=== PATIENT | female | born 1960 | race African-American/Black ===

== ENCOUNTER 2017-09-02 11:48 | Emergency (ER) | payer BC ==
[~2017-09-02] VITALS: Ht 182.9 cm; Wt 89.5 kg
[2017-09-02 11:56] VITALS: TEMP 98
[2017-09-02 12:29] LABS: BASO % 0.4 % (0.0-2.0); EOS # 0.1 (0.0-0.7); EOS % 2.8 % (0-4.0); GRAN # 2.5 (1.4-6.5); GRAN % 49.2 % (42.2-75.2); HEMOGLOBIN 11.2 g/dl (12.5-16.0); LYMPH # 1.9 (1.2-3.4); LYMPH % 38.5 % (20.0-51.0); MEAN CELL VOLUME 87 fl (80.0-100.0); MEAN CORPUSCULAR HEMOGLOBIN 28 pg (27.0-31.0); MEAN CORPUSCULAR HGB CONC 32 g/dl (33.0-37.0); MONO # 0.4 (0.1-0.6); MONO % 8.7 % (1.7-9.3); PLATELET COUNT 306 K/mm3 (130-400); RED BLOOD COUNT 4.04 M/mm3 (4.10-5.30); REDCELL DISTRIBUTION WIDTH-CV 12.8 % (11.5-14.5)
[2017-09-02 12:32] LABS: HEMATOCRIT 35.1 % (37.0-47.0)
[2017-09-02 12:36] LABS: ALANINE AMINOTRANSFERASE 24 U/L (9-52); ALBUMIN 3.8 gm/dL (3.5-5.0); ALKALINE PHOSPHATASE 96 U/L (50-136); ANION GAP 10 mmol/L (7-16); AST,SGOT 22 U/L (15-37); BILIRUBIN,TOTAL 0.3 mg/dL (0.0-1.0); BLOOD UREA NITROGEN 14 mg/dL (7-17); CALCIUM 9.1 mg/dL (8.4-10.2); CARBON DIOXIDE 26 mmol/L (22-30); CHLORIDE 103 mmol/L (98-107); GLUCOSE 148 mg/dL (74-106); LIPASE 52 U/L (23-300); POTASSIUM 3.2 mmol/L (3.4-5.0); SODIUM 138 mmol/L (137-145); TOTAL PROTEIN 7.3 gm/dL (6.4-8.2)
[2017-09-02 13:12] LABS: TROPONIN-I < 0.012 ng/mL (0.000-0.034)
[2017-09-02] MEDS ORDERED: FLEXERIL 1010 MG/TAB PO (13:49)
[2017-09-02] MEDS ORDERED: NORCO 325 MG-51 TAB PO (13:49)
[2017-09-02 14:03] VITALS: BP 159/85; PULSE 62
== END 2017-09-02 14:00 | disposition home or self-care (01) ==
LOC: COL.ER 11:48
PROVIDERS: Emergency Medicine
DX: M79.1 Myalgia (principal); R60.9 Edema, unspecified; J45.909 Unspecified asthma, uncomplicated; F17.210 Nicotine dependence, cigarettes, uncomplicated; Z86.718 Personal history of other venous thrombosis and embolism; Z98.51 Tubal ligation status

== ENCOUNTER → 2017-09-07 | Outpatient (CLI) | payer OTHER ==
[~2017-09-07] MED LIST: FLEXERIL 1010 MG/TAB PO; NORCO 325 MG-51 TAB PO
== END ==
LOC: COL.RAD 11:39
DX: M51.36 Other intervertebral disc degeneration, lumbar region (principal); M48.061 Spinal stenosis, lumbar region without neurogenic claudication

== ENCOUNTER → 2017-11-15 | Outpatient (CLI) | payer SELFPAY | LOC: COL.VAS 14:14 | DX: M79.89 Other specified soft tissue disorders (principal); R79.1 Abnormal coagulation profile; R79.9 Abnormal finding of blood chemistry, unspecified; Z91.89 Other specified personal risk factors, not elsewhere classified; Z86.718 Personal history of other venous thrombosis and embolism ==

== ENCOUNTER → 2017-11-15 | Outpatient (CLI) | payer SELFPAY | LOC: COL.LAB 12:36 | DX: I82.409 Acute embolism and thrombosis of unspecified deep veins of unspecified lower extremity (principal) ==

== ENCOUNTER 2017-11-30 07:06 | Emergency (ER) | payer BC ==
[~2017-11-30] VITALS: Ht 154.9 cm; Wt 85.9 kg
[2017-11-30 07:18] VITALS: TEMP 98.4
[2017-11-30] MEDS ORDERED: MOTRIN 800800 MG/TAB PO (08:22)
[2017-11-30 08:34] VITALS: BP 144/86; PULSE 76
== END 2017-11-30 08:35 | disposition home or self-care (01) ==
LOC: COL.ER 07:06
DX: M25.512 Pain in left shoulder (principal); I10 Essential (primary) hypertension; F17.210 Nicotine dependence, cigarettes, uncomplicated

== ENCOUNTER 2018-03-07 08:05 | Emergency (ER) | payer BC ==
[~2018-03-07] VITALS: Ht 154.9 cm; Wt 86.4 kg
[~2018-03-07 08:05] MED LIST changes: +MOTRIN 800800 MG/TAB PO
[2018-03-07 08:09] VITALS: TEMP 99.6
[2018-03-07] MEDS ORDERED: PREDNISONE20 MG PO (08:55)
[2018-03-07] MEDS ORDERED: ELIQUIS 5MG PO (08:56)
[2018-03-07] MEDS ORDERED: HCTZ 25MG TAB25 MG PO (08:57)
[2018-03-07] MEDS ORDERED: AMOXICILLIN 8751 TAB PO (09:11)
[2018-03-07 09:21] VITALS: BP 125/85; PULSE 89
== END 2018-03-07 09:22 | disposition home or self-care (01) ==
LOC: COL.ER 08:05
DX: J01.90 Acute sinusitis, unspecified (principal); Z87.891 Personal history of nicotine dependence; Z98.51 Tubal ligation status; J45.909 Unspecified asthma, uncomplicated

== ENCOUNTER 2018-08-25 07:16 | Emergency (ER) | payer BC ==
[~2018-08-25] VITALS: Ht 154.9 cm; Wt 84.1 kg
[~2018-08-25 07:16] MED LIST changes: +AMOXICILLIN 8751 TAB PO; +ELIQUIS 5MG PO; +HCTZ 25MG TAB25 MG PO; +PREDNISONE20 MG PO
[2018-08-25 07:21] VITALS: TEMP 98.6
[2018-08-25 08:12] LABS: BASO % 0.4 % (0.0-2.0); EOS # 0.2 (0.0-0.7); EOS % 1.6 % (0-4.0); GRAN # 6.4 (1.4-6.5); GRAN % 58.4 % (42.2-75.2); HEMOGLOBIN 11.4 g/dl (12.5-16.0); LYMPH % 27.2 % (20.0-51.0); MEAN CELL VOLUME 92 fl (80.0-100.0); MEAN CORPUSCULAR HEMOGLOBIN 28 pg (27.0-31.0); MEAN CORPUSCULAR HGB CONC 31 g/dl (33.0-37.0); MONO # 1.3 (0.1-0.6); MONO % 11.7 % (1.7-9.3); PLATELET COUNT 298 K/mm3 (130-400); RED BLOOD COUNT 4.02 M/mm3 (4.10-5.30); REDCELL DISTRIBUTION WIDTH-CV 13.7 % (11.5-14.5)
[2018-08-25 08:22] LABS: ALBUMIN 3.6 gm/dL (3.5-5.0); BILIRUBIN,TOTAL 0.2 mg/dL (0.0-1.0); CALCIUM 9.1 mg/dL (8.4-10.2); CREATININE, serum 0.77 (0.52-1.25); TOTAL PROTEIN 6.8 gm/dL (6.4-8.2)
[2018-08-25 09:24] LABS: INR 0.9 (0.8-3.0); PROTHROMBIN TIME 10.5 SECONDS (9.7-12.8)
[2018-08-25] MEDS ORDERED: FLEXERIL 1010 MG/TAB PO (09:39)
[2018-08-25 11:01] VITALS: BP 148/98; PULSE 64
== END 2018-08-25 11:06 | disposition home or self-care (01) ==
LOC: COL.ER 07:16
PROVIDERS: Emergency Medicine; Physician Assistant
DX: S39.011A Strain of muscle, fascia and tendon of abdomen, initial encounter (principal); J45.909 Unspecified asthma, uncomplicated; I10 Essential (primary) hypertension; Z79.01 Long term (current) use of anticoagulants; Z86.718 Personal history of other venous thrombosis and embolism; F17.210 Nicotine dependence, cigarettes, uncomplicated; Z98.51 Tubal ligation status; X50.0XXA Overexertion from strenuous movement or load, initial encounter
CPT/HCPCS: J1170; J2270; J2405; J2550; J7030; Q9967

== ENCOUNTER 2019-01-02 17:46 | Emergency (ER) | payer BC ==
[~2019-01-02] VITALS: Ht 154.9 cm; Wt 81.8 kg
[2019-01-02 17:50] VITALS: BP 158/80; TEMP 97.7
[2019-01-02 18:26] LABS: STREP SCREEN NEGATIVE
[2019-01-02] MEDS ORDERED: CLEOCIN HCL300 MG PO (20:18)
[2019-01-02 20:36] VITALS: PULSE 86
== END 2019-01-02 20:36 | disposition home or self-care (01) ==
LOC: COL.ER 17:46
PROVIDERS: Emergency Medicine
DX: J03.90 Acute tonsillitis, unspecified (principal); F17.210 Nicotine dependence, cigarettes, uncomplicated
CPT/HCPCS: J1100; J7030

== ENCOUNTER 2020-07-05 12:33 | Emergency (ER) | payer BC ==
[~2020-07-05] VITALS: Ht 154.9 cm; Wt 84.1 kg
[~2020-07-05 12:33] MED LIST changes: +CLEOCIN HCL300 MG PO
[2020-07-05 13:07] VITALS: TEMP 98.1
[2020-07-05] MEDS ORDERED: FLEXERIL 1010 MG/TAB PO (14:18)
[2020-07-05] MEDS ORDERED: ALDACTONE 25MG25 M1 PO (14:22)
[2020-07-05] MEDS ORDERED: NORCO 325 MG-51 TAB PO (14:35)
[2020-07-05 15:00] LABS: CALCIUM 9.4 mg/dL (8.4-10.2); CREATININE, serum 0.71 (0.52-1.25); POTASSIUM 3.5 mmol/L (3.4-5.0)
[2020-07-05 15:45] VITALS: BP 171/104; PULSE 78
== END 2020-07-05 15:50 | disposition home or self-care (01) ==
LOC: COL.ER 12:33
PROVIDERS: Physician Assistant
DX: I10 Essential (primary) hypertension (principal); R22.42 Localized swelling, mass and lump, left lower limb; F17.210 Nicotine dependence, cigarettes, uncomplicated; Z86.718 Personal history of other venous thrombosis and embolism; Z79.01 Long term (current) use of anticoagulants

== ENCOUNTER 2021-02-15 07:24 | Emergency (ER) | payer OTHER ==
[~2021-02-15] VITALS: Ht 154.9 cm; Wt 81.8 kg
[~2021-02-15 07:24] MED LIST changes: +ALDACTONE 25MG25 M1 PO
[2021-02-15 07:36] VITALS: TEMP 97.9
[2021-02-15 07:42] LABS: COLLECTION METHOD CLEAN CATCH
[2021-02-15 07:48] LABS: MUCOUS Present (NOT PRESENT); PH 7 (5-8); SQUAMOUS EPITHELIAL 0-2 /hpf (0-10); URINE APPEARANCE Clear (CLEAR/HAZY); URINE BACTERIA None Seen /hpf (NONE SEEN); URINE BILIRUBIN Negative (NEGATIVE); URINE BLOOD Negative (NEGATIVE); URINE COLOR Yellow (YELLOW); URINE GLUCOSE Negative (NEGATIVE); URINE KETONE Negative (NEGATIVE); URINE LEUKOCYTE ESTERASE Negative (NEGATIVE); URINE NITRATE Negative (NEGATIVE); URINE PROTEIN(semi-quant) Negative (NEGATIVE); URINE RBC 0-2 /hpf (0-2); URINE UROBILINOGEN Negative (NEGATIVE)
[2021-02-15] MEDS ORDERED: FLEXERIL 1010 MG/TAB PO (08:16)
[2021-02-15 08:26] VITALS: BP 1774/10; PULSE 80
== END 2021-02-15 08:35 | disposition home or self-care (01) ==
LOC: COL.ER 07:24
PROVIDERS: Emergency Medicine
DX: M54.50 Low back pain, unspecified (principal); I10 Essential (primary) hypertension; Z86.718 Personal history of other venous thrombosis and embolism; Z79.01 Long term (current) use of anticoagulants; X50.0XXA Overexertion from strenuous movement or load, initial encounter; Y99.0 Civilian activity done for income or pay
CPT/HCPCS: J1885

== ENCOUNTER 2021-05-17 10:54 | Emergency (ER) | payer SELFPAY ==
[~2021-05-17] VITALS: Ht 154.9 cm; Wt 82.7 kg
[2021-05-17 11:02] VITALS: TEMP 98.9
[2021-05-17 11:17] LABS: COLLECTION METHOD CLEAN CATCH
[2021-05-17 11:24] LABS: MUCOUS Present (NOT PRESENT); PH 5 (5-8); SQUAMOUS EPITHELIAL 0-2 /hpf (0-10); URINE APPEARANCE Hazy (CLEAR/HAZY); URINE BACTERIA None Seen /hpf (NONE SEEN); URINE BILIRUBIN Negative (NEGATIVE); URINE BLOOD 1+ (NEGATIVE); URINE COLOR Yellow (YELLOW); URINE GLUCOSE Negative (NEGATIVE); URINE KETONE Negative (NEGATIVE); URINE LEUKOCYTE ESTERASE Negative (NEGATIVE); URINE NITRATE Negative (NEGATIVE); URINE PROTEIN(semi-quant) Negative (NEGATIVE); URINE UROBILINOGEN Negative (NEGATIVE)
[2021-05-17 11:51] LABS: BASO % 0.6 % (0.0-2.0); EOS % 0.3 % (0.0-4.0); GRAN # 1.6 K/mm3 (1.4-6.5); GRAN % 50.7 % (42.2-75.2); HEMATOCRIT 40.1 % (37.0-47.0); HEMOGLOBIN 12.9 g/dl (12.5-16.0); LYMPH # 0.9 K/mm3 (1.2-3.4); LYMPH % 29.4 % (20.0-51.0); MEAN CELL VOLUME 88 fl (80.0-100.0); MEAN CORPUSCULAR HEMOGLOBIN 28 pg (27-31); MEAN CORPUSCULAR HGB CONC 32 g/dl (33.0-37.0); MONO # 0.6 K/mm3 (0.1-0.6); MONO % 18.4 % (1.7-9.3); PLATELET COUNT 309 K/mm3 (130-400); RED BLOOD COUNT 4.58 M/mm3 (4.10-5.30); REDCELL DISTRIBUTION WIDTH-CV 13.2 % (11.5-14.5)
[2021-05-17 12:07] LABS: ALANINE AMINOTRANSFERASE 19 U/L (0-55); ALKALINE PHOSPHATASE 101 U/L (40-150); ANION GAP 12 mmol/L (7-16); AST,SGOT 24 U/L (5-34); BILIRUBIN,TOTAL 0.4 mg/dL (0.2-1.2); BLOOD UREA NITROGEN 17 mg/dL (10-20); C-REACTIVE PROTEIN 5.04 mg/dL (0.00-0.50); CARBON DIOXIDE 24 mmol/L (23-31); CHLORIDE 99 mmol/L (98-107); CREATININE, serum 0.97 mg/dL (0.57-1.11); GLUCOSE 103 mg/dL (70-99); POTASSIUM 3.3 mmol/L (3.5-4.5); SODIUM 135 mmol/L (136-145); TOTAL PROTEIN 8.4 gm/dL (6.2-8.1)
[2021-05-17 12:14] LABS: TROPONIN-I < 0.010 ng/mL (0.00-0.033)
[2021-05-17 15:55] VITALS: BP 170/96; PULSE 84
[2021-05-17] MEDS ORDERED: NORCO 325 MG-51 TAB PO (15:55)
== END 2021-05-17 16:07 | disposition home or self-care (01) ==
LOC: COL.ER 10:54
PROVIDERS: Nurse Practitioner
DX: S86.912A Strain of unspecified muscle(s) and tendon(s) at lower leg level, left leg, initial encounter (principal); R07.9 Chest pain, unspecified; R39.15 Urgency of urination; R11.0 Nausea; R05.1 Acute cough; F17.210 Nicotine dependence, cigarettes, uncomplicated; Z20.822 Contact with and (suspected) exposure to COVID-19; X50.1XXA Overexertion from prolonged static or awkward postures, initial encounter; W01.0XXA Fall on same level from slipping, tripping and stumbling without subsequent striking against object, initial encounter; Y92.59 Other trade areas as the place of occurrence of the external cause; Y99.0 Civilian activity done for income or pay
CPT/HCPCS: J2270; J2405; Q9967